=== PATIENT | male | born 1955 | race Two or more races ===

== ENCOUNTER 2020-07-29 07:27 | Day surgery (SDC) | payer MEDICARE, MEDICAID ==
[2020-07-29] MEDS ORDERED: fentaNYL 100 MCG/2 ML SDV IV ONE (07:28)
[2020-07-29] MEDS ORDERED: Succinylcholine 200 MG/10 ML MDV IV ONE (07:28)
[2020-07-29] MEDS ORDERED: Midazolam 1 MG/ML 2 ML SDV IV ONE (07:28)
[2020-07-29] MEDS ORDERED: Propofol 200 MG/20 ML SDV IV ONE (07:28)
[2020-07-29] MEDS ORDERED: Lactated Ringers 1,000 ML IV ONE (07:28)
[2020-07-29] MEDS ORDERED: Dexmedetomidine 200 MCG/2 ML SDV IV ONE (07:28)
[2020-07-29] MEDS ORDERED: Rocuronium 50 MG/5 ML Vial IV ONE (07:28)
[2020-07-29] MEDS ORDERED: Ketamine 500 mg/10 ML MDV IV ONE (07:28)
[2020-07-29] MEDS ORDERED: Ondansetron 4 MG/2 ML SDV IVPUSH ONE (07:28)
[2020-07-29] MEDS ORDERED: Sodium Chloride 0.9% 10 ML Syringe FLUSH PRN (07:30)
[2020-07-29] MEDS: Lactated Ringers 1,000 ML IV SCH (08:00)
[2020-07-29] MEDS: Lidocaine 1% with EPINEPHrine 1:100,000 20 ML MDV INJECT ONE (10:21)
[2020-07-29] MEDS: Bupivacaine 0.5% 30 ML SDV INJECT ONE (10:22)
--- NOTE | 2020-07-29 11:08 | PCM.HPR ---
H & P Addendum review - H & P Addendum Review Date of Original H & P: 07/22/20 Date Reviewed: 07/29/20 Time Reviewed: 09:20 Patient was Examined: No Changes
--- NOTE | 2020-07-29 11:10 | PCM.OPNOTE ---
- General Post-Op/Procedure Note Date of Surgery/Procedure: 07/29/20 Operative Procedure(s): Fistulotomy/Seton placement Findings: Anal Fistula Pre Op Diagnosis: Anal Fistula Post-Op Diagnosis: Same Anesthesia Technique: General ET Tube Primary Surgeon: Roque PALMA in mLs: 5 Complications: None Condition: Good
[2020-07-29 11:24] VITALS: PULSE 66
[2020-07-29 13:11] VITALS: BP 123/62
--- NOTE | 2020-07-29 14:30 | OR ---
DATE OF OPERATION: 07/29/2020 SURGEON: Roque Webber MD PREOPERATIVE DIAGNOSIS: Chronic anal fistula. POSTOPERATIVE DIAGNOSIS: Chronic anal fistula. PROCEDURE: Partial fistulotomy with seton placement. ANESTHESIA: General with local. DESCRIPTION OF PROCEDURE: The patient was brought to the operating room where he was placed in the prone jackknife position. Buttocks were prepped with benzoin and retracted with tape. Betadine prep was performed. IV sedation was administered. Upon trying to do any form of anoscopic exam or stimulation, the patient would move. I was able to place the probe for several centimeters to confirm fistula on the patient's right lateral buttock cheek. We decided to do this under local with IV sedation if not feasible and thus he was placed back onto his bed and general endotracheal anesthesia administered. He was then repositioned in the prone jackknife position, and buttocks prepped with benzoin and retracted with the tape and re-prepped. Under general anesthesia, I was able to do good anoscopic exam which does not reveal any obvious abnormalities. I then injected a mixture of hydrogen peroxide and methylene blue in the fistula located on the right lateral butt cheek approximately 4 cm from the anal canal. This did come bubbling out just to the right of the posterior midline as expected. I was able to place a probe down to this level, but would not come out the internal opening. I opened up the fistula on the external opening for a couple of centimeters and was then able to place the probe again and would not come out the internal opening. With a right angle, I did gently probe the internal opening and could feel this with my little finger. This goes around the entire sphincter muscle complex. I was able to grasp the probe and bring it through the internal opening and tie of 2-0 silk onto this probe and then pull it back through. This was loosely tied. Tails were cut a couple of inches long. A gauze dressing was applied. The patient tolerated the procedure well. Blood loss 5 mL. He returned to postanesthesia in stable condition. /[id number] MICKI/NELLY
== END 2020-07-29 12:48 | disposition home or self-care (01) ==
LOC: FB.SDS 07:27
PROVIDERS: ATTEND Surgery
DX: K60.3 Anal fistula (principal)
CPT/HCPCS: 00902-QZ; J0330; J2250; J2405; J2704; J3010; J3490; J7120